=== PATIENT | female | born 1970 | race Caucasian/White ===

== ENCOUNTER 2021-04-10 11:46 | Emergency (ER) | payer SELFPAY ==
[2021-04-10 11:55] VITALS: BP 135/85; PULSE 69; RESP 18; TEMP 36.5; O2SAT 97; BMI 36.9
--- NOTE | 2021-04-10 12:10 | XR_ITS ---
WS: [id number] Portable AP upright chest, 04/10/2021 Clinical Data: sob Comparison: None. Findings: No nodules, masses or effusions are seen. The heart is normal. The pulmonary vascularity is not increased. No pneumonia or pneumothorax is seen. XR/XR chest 1V portable [id number] Impression: Negative chest.
[2021-04-10 13:39] LABS: Basophils # 0.1 10^3/uL (0.0-0.1); Basophils % 0.9 %; Eosinophils # 0.2 10^3/uL (0.0-0.8); Eosinophils % 2.1 %; Hematocrit 47.3 % (37.0-47.0); Hemoglobin 14.3 g/dL (11.5-15.3); Lymphocytes # 2.1 10^3/uL (0.8-4.8); Lymphocytes % 20.4 %; Mean Corpuscular HGB Conc 30.2 g/dL (30.0-36.0); Mean Corpuscular Hemoglobin 27.1 pg (28.0-34.0); Mean Corpuscular Volume 89.6 fl (81-99); Monocytes # 0.7 10^3/uL (0.2-0.9); Monocytes % 6.7 %; Neutrophils # 7.31 10^3/uL (1.8-7.7); Neutrophils % 69.7 %; Nucleated Red Blood Cells % 0 %; Platelet Count 239 10^3/cmm (130-400); Red Blood Count 5.28 10^6/uL (4.1-5.3); White Blood Count 10.5 10^3/uL (4.0-10.0)
[2021-04-10 13:57] LABS: Alanine Aminotransferase 12 U/L (0-33); Albumin Level 4.4 g/dL (3.5-5.2); Alkaline Phosphatase 59 IU/L (35-105); Anion Gap 16.5 (5-19); Aspartate Amino Transferase 13 U/L (0-32); Blood Urea Nitrogen 14 mg/dL (6-20); Calcium 8.9 mg/dL (8.5-10.5); Carbon Dioxide 20 mmol/L (22-29); Chloride 105 mmol/L (98-107); Globulin 2.5 g/dL (1.3-4.6); Glomerular Filtration Rate 75.9 mL/min (90-130); Glucose 102 mg/dL (65-115); Lipase 11 U/L (13-60); Osmolality Calculated 287 mOsm/kg (285-295); Potassium 3.5 mmol/L (3.5-5.1); Sodium 138 mmol/L (136-145); Total Bilirubin 0.2 mg/dL (0.15-1.2); Total Protein 6.9 g/dL (6.6-8.7)
--- NOTE | 2021-04-10 14:46 | W.ED.COVID ---
HPI - COVID General: Chief Complaint: COVID symptoms Stated Complaint: SEVERE N/D, BURNING IN LUNGS Time Seen by Provider: 04/10/21 14:46 Triage information: Has fever, cough or shortness of breath. Exposure to COVID + person last 14 days History of Present Illness: HPI Narrative: Ms. Lynch is a 51-year-old lady with complex past medical history including multiple abdominal surgeries and fibromyalgia who recently moved from [place] on the who presents emergency department due to various concerns. Since moving here she has had headaches, fevers, cough, congestion, sore throat, diarrhea, and abdominal cramping. She has worsened the point that she has difficulty tolerating p.o. intake and feels miserable. She denies known sick exposures. Overall the course of symptoms is worsening. Intensity is moderate to severe. No other specific changes in health, exacerbating, relieving factors identified. Patient is a former smoker however has quit. Prior covid testing: no COVID 19 common symptoms: positive fever(s), chills, cough, fatigue, body aches, headache(s), throat pain, nasal congestion, nausea and diarrhea Onset (ago): day(s) Severity: moderate Pertinent comorbid conditions: tobacco use/smoking and obesity Treatment prior to arrival: acetaminophen and ibuprofen COVID Results: SARS-CoV-2 Antigen (Rapid) Positive (Negative) H 04/10/21 15:45 04/10/21 Review of Systems General: Reports: 10 or more systems reviewed and unremarkable except in HPI and below Const: Reports: fever(s), chills, body aches and fatigue ENMT: Reports: throat pain and nasal congestion GI: Reports: nausea and diarrhea Neuro: Reports: headache(s) PFSH ED PFSH: Medical History (Updated 04/10/21 @ 19:44 by David Heath MD) Fibromyalgia Necrotizing inflammation of lymph node Surgical History (Updated 04/10/21 @ 16:49 by David Heath MD) H/O exploratory laparotomy History of hysterectomy Social History (Updated 04/10/21 @ 16:49 by David Heath MD) Smoking and tobacco status: former smoker Physical Exam Const: COMMON NORMALS: alert GENERAL APPEARANCE: cooperative, well developed and ill appearing (Somewhat) HENMT: COMMON NORMALS: normocephalic and atraumatic HEAD & SCALP: normocephalic and atraumatic THROAT: posterior oropharynx normal (Dry mucous membrane dry mucous membranes) Eye: COMMON NORMALS: conjunctivae normal CONJUNCTIVA: Yes conjunctivae normal SCLERA: sclerae normal Neck/C-Spine: COMMON NORMALS: supple GENERAL: Yes trachea midline Resp: COMMON NORMALS: No retractions EFFORT & INSPECTION: Yes able to speak in complete sentences AUSCULTATION: rhonchi lower bilaterally and diminished lung sounds Cardio: COMMON NORMALS: regular rate and regular rhythm RATE: regular rate RHYTHM: regular rhythm GI: COMMON NORMALS: Soft to palpation PALPATION: Yes Soft to palpation, Yes Tenderness to palpation present (GI), No Guarding due to palpation present (GI) and No Rigid due to palpation PERCUSSION: normal to percussion Extremity: GENERAL: Yes normal exam except as noted and No edema Neuro: COMMON NORMALS: moves all extremities SENSORIUM/ORIENTATION: Yes alert and No Orientation impaired Psych: COMMON NORMALS: mental status grossly normal and Normal thought process present THOUGHT PROCESS: Normal thought process present Course ED course: - Patient was seen and evaluated by me at bedside - Patient placed on cardiac monitors, IV access obtained - Initial evaluation notable for exam as above, somewhat ill-appearing. -Symptom treatment ordered - Labs notable for Minimal leukocytosis. Metabolic panel with mildly decreased bicarb likely secondary to dehydration given urine ketones. COVID positive. - Imaging notable for negative chest x-ray. Colitis noted on CT scan of abdomen and pelvis. - Upon serial reexamination after treatment the patient was improved. She tolerated p.o. intake. - Based on patient history, evaluation, labs, and imaging as interpreted the most likely cause of the patient's condition is colitis and COVID-19 - The results of ED evaluation were discussed with the patient including prescriptions and/or symptomatic cares (if applicable) including appropriate and responsible use, followup plan, and return precautions. The patient verbalized understanding and felt safe for discharge. - Patient discharged in satisfactory condition. Note: Click bubbles or prepopulated salgado in note writing are used for assistance with data collection and billing and are inherently more limited than narrative and other text portions of this note. Please use narrative for additional clinical history and defer to narrative/free test for any case of contradictory information. If information appears in only free text or click bubble it should be considered present or absent as reported. Please contact note service writer advisor for clarifications of clinical information or contradictory information. TAO is a brief summary, contradictory or erroneous seeming information should be clarified and full note should be reviewed. Vital Signs: Vital signs: Vital Signs Temperature 97.7 F 04/10/21 17:07 Pulse Rate 47 L 04/10/21 20:47 Respiratory Rate 18 04/10/21 20:47 Blood Pressure 125/93 04/10/21 20:47 Pulse Oximetry 94 04/10/21 20:47 MDM - COVID MDM Narrative Medical decision making narrative: 51-year-old lady with history of tobacco and fibromyalgia presenting with generalized symptoms for approximately 10 days. Patient found to have COVID-19 and colitis. Patient improved after symptomatic treatment and tolerating p.o. intake. Satisfactory for outpatient management. Medical Records Attestation: I reviewed the patient's medical records. Lab Data Attestation: I reviewed the patient's lab results. Result diagrams: 04/10/21 13:22 04/10/21 13:22 Labs: Radiology Impressions Chest X-Ray 04/10/21 12:10 Impression: Negative chest. Abdomen/Pelvis CT 04/10/21 17:46 IMPRESSION: Findings suspicious for colitis at splenic flexure and descending colon COMMENTS: Consistent with the [employer]'s Incidental Findings Committee white paper (J Am Shelton Radiol 2018): Any incidental renal lesion less than 1 cm or classified as too small to characterize, or any incidental cystic renal lesion characterized as simple-appearing, is likely benign. No follow-up imaging is recommended for these lesions per consensus recommendations based on imaging criteria. Laboratory Results WBC 10.5 10^3/uL (4.0-10.0) H 04/10/21 13:22 RBC 5.28 10^6/uL (4.1-5.3) 04/10/21 13:22 Hgb 14.3 g/dL (11.5-15.3) 04/10/21 13:22 Hct 47.3 % (37.0-47.0) H 04/10/21 13:22 MCV 89.6 fl (81-99) 04/10/21 13:22 MCH 27.1 pg (28.0-34.0) L 04/10/21 13:22 MCHC 30.2 g/dL (30.0-36.0) 04/10/21 13:22 RDW 13.0 % (12.1-15.1) 04/10/21 13:22 Plt Count 239 10^3/cmm (130-400) 04/10/21 13:22 MPV 10.0 fL (7.4-10.4) 04/10/21 13:22 Neut % (Auto) 69.7 % 04/10/21 13:22 Lymph % (Auto) 20.4 % 04/10/21 13:22 [place] % (Auto) 6.7 % 04/10/21 13:22 Eos % (Auto) 2.1 % 04/10/21 13:22 Baso % (Auto) 0.9 % 04/10/21 13:22 Neut # (Auto) 7.31 10^3/uL (1.8-7.7) 04/10/21 13:22 Lymph # (Auto) 2.1 10^3/uL (0.8-4.8) 04/10/21 13:22 [place] # (Auto) 0.7 10^3/uL (0.2-0.9) 04/10/21 13:22 Eos # (Auto) 0.2 10^3/uL (0.0-0.8) 04/10/21 13:22 Baso # (Auto) 0.1 10^3/uL (0.0-0.1) 04/10/21 13:22 Nucleated RBC % (auto) 0 % 04/10/21 13:22 Nucleated RBCs # 0.0 /100WBC 04/10/21 13:22 Sodium 138 mmol/L (136-145) 04/10/21 13:22 Potassium 3.5 mmol/L (3.5-5.1) 04/10/21 13:22 Chloride 105 mmol/L (98-107) 04/10/21 13:22 Carbon Dioxide 20 mmol/L (22-29) L 04/10/21 13:22 Anion Gap 16.5 (5-19) 04/10/21 13:22 BUN 14 mg/dL (6-20) 04/10/21 13:22 Creatinine 0.8 mg/dL (0.5-0.9) 04/10/21 13:22 GFR Calculation 75.9 mL/min (90-130) L 04/10/21 13:22 Glucose 102 mg/dL (65-115) 04/10/21 13:22 Calculated Osmolality 287 mOsm/kg (285-295) 04/10/21 13:22 Calcium 8.9 mg/dL (8.5-10.5) 04/10/21 13:22 Total Bilirubin 0.2 mg/dL (0.15-1.2) 04/10/21 13:22 AST 13 U/L (0-32) 04/10/21 13: ALT 12 U/L (0-33) 04/10/21 13:22 Alkaline Phosphatase 59 IU/L (35-105) 04/10/21 13:22 Total Protein 6.9 g/dL (6.6-8.7) 04/10/21 13: Albumin 4.4 g/dL (3.5-5.2) 04/10/21 13: Globulin 2.5 g/dL (1.3-4.6) 04/10/21 13: Lipase 11 U/L (13-60) L 04/10/21 13:22 Urine Color Yellow (Yellow) 04/10/21 18:00 Urine Appearance Clear (CLEAR) 04/10/21 18:00 Urine pH 5 (5-7) 04/10/21 18:00 Ur Specific Dan[place] 1.025 (1.005-1.030) 04/10/21 18:00 Urine Protein Neg (Negative) 04/10/21 18:00 Urine Glucose (UA) Norm (Normal) 04/10/21 18:00 Urine Ketones 1+ (Negative) H 04/10/21 18:00 Urine Blood Neg (Negative) 04/10/21 18:00 Urine Nitrate Negative (Negative) 04/10/21 18:00 Urine Bilirubin Neg (Negative) 04/10/21 18:00 Urine Urobilinogen Neg mg/dL (Negative) 04/10/21 18:00 Ur Leukocyte Esterase Negative (Negative) 04/10/21 18:00 SARS-CoV-2 Ag (Rapid) Positive (Negative) H 04/10/21 15:45 COVID Results: SARS-CoV-2 Antigen (Rapid) Positive (Negative) H 04/10/21 15:45 04/10/21 Discharge Plan Discharge Patient Disposition: Home Clinical Impression: COVID-19, Colitis Condition: Stable Prescriptions: New ondansetron 4 mg tablet,disintegrating 4 mg PO Q8H PRN (Reason: nausea and vomiting) 5 Days Qty: 15 0RF Augmentin 875-125 mg tablet 1 tab PO BID 10 Days Qty: 20 0RF oxycodone 5 mg tablet 5 mg PO Q4H PRN (Reason: pain) Qty: 10 0RF Discharge Orders: Discharge ED (Routine); Ordered 04/10/21 Ordered By: David Heath Discharge Diet: Usual diet Discharge Activity: Resume usual activity Patient Instructions: Colitis (ED), COVID-19 (Coronavirus Disease 2019) (ED), Opioid Safety Activity Restrictions/Additional Instructions: Thank you for visiting the emergency department. You were seen and evaluated for generalized symptoms. You are found of Covid in addition to colitis which I believe explains all of your symptoms. Symptom treatment is primarily supportive for Covid You may use [id number] medications however please do not exceed the daily recommended dosage of any medication and please keep in mind that many namebrand medications contain the same active ingredients. The treatment for colitis is antibiotics and pain control. You will be given prescriptions. Please follow-up with your primary care provider. Return to the emergency department for worsening symptoms or anything else that you are concerned about and feel needs emergent evaluation. Coding Level of Care Code ED [employer] Specialist for Jose Juárez
[2021-04-10] MEDS: ketorolac 30 mg/mL INJ 15 MG IVP (15:53)
[2021-04-10] MEDS: ondansetron 2 mg/ML SDV 2 mL 4 MG IVP (15:54)
[2021-04-10] MEDS: lidocaine 2% viscous 15 ML, aluminum-mag hydrox-simethicon 30 ML, sucralfate oral liq 1 GM PO (15:54)
[2021-04-10] MEDS: sodium chloride 0.9% 1,000 ML 999 ML IV (15:54)
[2021-04-10 17:07] VITALS: BP 109/46; PULSE 50; RESP 18; TEMP 36.5; O2SAT 92
[2021-04-10 17:30] LABS: SARS Covid-2 Antigen Positive (Negative)
--- NOTE | 2021-04-10 17:46 | CTR_ITS ---
PROCEDURE INFORMATION: Exam: CT Abdomen And Pelvis With Contrast Exam date and time: 04/10/2021 5:46 PM Age: 51 years old Clinical indication: Abdominal pain; Generalized; Prior surgery; Surgery date: 6+ months; Surgery type: Hyst; Patient HX: C/O abd pain w nausea and diarrhea TECHNIQUE: Imaging protocol: Computed tomography of the abdomen and pelvis with contrast. Radiation optimization: All CT scans at this facility use at least one of these dose optimization techniques: automated exposure control; mA and/or kV adjustment per patient size (includes targeted exams where dose is matched to clinical indication); or iterative reconstruction. Contrast material: OMNI 300; Contrast volume: 95 ml; Contrast route: INTRAVENOUS (IV); COMPARISON: CR XR chest 1V portable [id number] 04/10/2021 12:25 PM RADIATION DOSE METRICS: Total DLP (mGy-cm): 1740.82 FINDINGS: Liver: Normal. No mass. Gallbladder and bile ducts: Normal. No calcified stones. No ductal dilation. Pancreas: Normal. No ductal dilation. Spleen: Normal. No splenomegaly. Adrenal glands: Normal. No mass. Kidneys and ureters: 3.5 cm right renal cyst is likely benign. No hydronephrosis. Stomach and bowel: Mild wall thickening and adjacent reactive change suggested at descending colon and splenic flexure. Appendix: No evidence of appendicitis. Intraperitoneal space: Unremarkable. No free air. No significant fluid collection. Vasculature: Minimal vascular calcifications are noted. No findings of abdominal aortic aneurysm. Lymph nodes: Unremarkable. No enlarged lymph nodes. Urinary bladder: Unremarkable as visualized. Reproductive: Hysterectomy. Bones/joints: No acute fracture. Soft tissues: Unremarkable. CT/CT abdomen pelvis w con* [id number] IMPRESSION: Findings suspicious for colitis at splenic flexure and descending colon COMMENTS: Consistent with the [employer]'s Incidental Findings Committee white paper (J Am Shelton Radiol 2018): Any incidental renal lesion less than 1 cm or classified as too small to characterize, or any incidental cystic renal lesion characterized as simple-appearing, is likely benign. No follow-up imaging is recommended for these lesions per consensus recommendations based on imaging criteria.
[2021-04-10 18:13] LABS: Add Urine Microscopic? NO; Charge for UA Resulting for Rev
[2021-04-10 18:18] LABS: Bilirubin Urine Neg (Negative); Blood Urine Neg (Negative); Glucose Urine UA Norm (Normal); Ketones Urine 1+ (Negative); Leukocyte Esterase Urine Negative (Negative); Nitrate Urine Negative (Negative); Protein Urine Neg (Negative); Specific Gravity, Urine 1.025 (1.005-1.030); Urine Appearance Clear (CLEAR); Urine Color Yellow (Yellow); Urobilinogen Urine Neg (Negative); pH Urine 5 (5-7)
[2021-04-10] MEDS: iohexol 300 mg/mL 100 mL Btl IV (19:01)
[2021-04-10 20:05] VITALS: RESP 18
[2021-04-10] MEDS: morphine 4 mg/mL SDV 1 mL IVP (20:05)
[2021-04-10] MEDS: amoxicillin-clav 875-125 mg Tablet 1 TAB PO (20:45)
[2021-04-10 20:47] VITALS: BP 125/93; PULSE 47; RESP 18; O2SAT 94
== END 2021-04-10 20:48 | disposition home or self-care (01) ==
PROVIDERS: Physician Assistant; Emergency Provider Emergency Medicine
DX: U07.1 COVID-19 (principal); K52.9 Noninfective gastroenteritis and colitis, unspecified; Z87.891 Personal history of nicotine dependence
CPT/HCPCS: 71045; 74177; 80053; 81003; 83690; 85025; 87426; 96361; 96374; 96375; 99284; J1885; J2270; J2405; J7030; Q9967